=== PATIENT | female | born 1985 | race Caucasian/White ===

== ENCOUNTER → 2020-01-23 14:01 | Outpatient (CLI) | payer OTHER, SELFPAY ==
[2020-01-23 14:13] LABS: Add Manual Diff / Slide Review NO; Basophils Absolute Auto 0 /uL (0-100); Basophils Percent Auto 0.6 % (0-2); Eosinophils Absolute Auto 100 /uL (0-450); Eosinophils Percent Auto 1.7 % (2-4); Hemoglobin 12.2 g/dL (12.0-16.0); Lymphocytes Absolute Auto 1800 /uL (1100-4500); Mean Corpuscular Volume 82.3 fL (80-100); Monocytes Absolute Auto 500 /uL (0-900); Monocytes Percent Auto 6.9 % (3-14); Neutrophils Absolute Auto 5000 /uL (1500-7000); Neutrophils Percent Auto 66.8 % (50-75); Platelet Count 314 X10^3/uL (150-400); Red Blood Cell Count 4.37 X10^6/uL (4.0-5.2); Red Cell Distribution Width 13.5 % (11.6-14.8); White Blood Cell Count 7.4 X10^3/uL (4.5-11.0)
[2020-01-23 14:28] LABS: C-Reactive Protein Quant 1.6 mg/dL (<1.0); Uric Acid 5.4 mg/dL (2.5-6.2)
[2020-01-23 14:35] LABS: Erythrocyte Sedimentation Rate 45 MM/HR (0-20)
== END ==
PROVIDERS: PCP Registered Nurse Diabetes Educator; Referring Provider Registered Nurse Diabetes Educator; Visit Provider Registered Nurse Diabetes Educator
DX: M25.473 Effusion, unspecified ankle (principal)
CPT/HCPCS: 36415; 84550; 85025; 85651; 86140

== ENCOUNTER → 2020-01-24 13:53 | Outpatient (CLI) | payer OTHER, SELFPAY ==
--- NOTE | 2020-01-24 13:55 | DI.RAD.S_ITS ---
PROCEDURE: XR ANKLE RT MIN 3V INDICATIONS: 3 day hx R ankle pain/swelling, no recent trauma TECHNIQUE: 3 views of the ankle were acquired. COMPARISON: None. FINDINGS: Bones: No fractures or dislocations. Ankle mortise is normally aligned. No suspicious bony lesions. Soft tissues: No tibiotalar joint effusion. Achilles tendon appears normal. IMPRESSION: No acute osseous abnormalities. Dictated by: Emily Reyes M.D. on 01/24/2020 at 17:46 Approved by: Emily Reyes M.D. on 01/24/2020 at 17:46
== END ==
LOC: RAD 13:54
PROVIDERS: PCP Registered Nurse Diabetes Educator; Referring Provider Registered Nurse Diabetes Educator; Visit Provider Registered Nurse Diabetes Educator
DX: M25.471 Effusion, right ankle (principal); M25.571 Pain in right ankle and joints of right foot
CPT/HCPCS: 73610

== ENCOUNTER → 2020-02-01 14:22 | Outpatient (CLI) | payer OTHER, SELFPAY ==
[2020-02-01 14:38] LABS: RBC Urine None Seen (0-5/HPF)
[2020-02-01 15:09] LABS: Appearance Urine UA SL CLOUDY; Bilirubin Urine UA NEGATIVE (NEGATIVE); Color Urine UA YELLOW; Glucose Urine UA NEGATIVE (Negative); Ketones Urine UA NEGATIVE (NEGATIVE); Leukocyte Esterase Urine UA NEGATIVE (NEGATIVE); Nitrite Urine UA NEGATIVE (Negative); Occult Blood Urine UA NEGATIVE (Negative); Protein Urine UA NEGATIVE (Negative); Specific Gravity Urine UA <=1.005 (1.000-1.035); Urobilinogen Urine UA 0.2 E.U./dL (0.2)
[2020-02-01 15:21] LABS: Alanine Aminotransferase 18 IU/L (<35); Albumin 4.4 g/dL (3.5-5.0); Alkaline Phosphatase 69 U/L (38-126); Aspartate Aminotransferase 21 IU/L (14-36); BUN Creatinine Ratio 19.2 (6-22); Bilirubin Total 0.4 mg/dL (0.2-1.3); Blood Urea Nitrogen 14 mg/dL (7-17); Calcium 9.5 mg/dL (8.4-10.2); Carbon Dioxide 26 mmol/L (22-32); Chloride 103 mmol/L (98-107); Estimated Glomerular Filt Rate > 60.0 mL/min (>60); Globulin 4.2 g/dL (1.7-4.1); Glucose 88 mg/dL (70-100); HEMOLYSIS < 15 (0-50); Potassium 3.9 mmol/L (3.4-5.1); Sodium 136 mmol/L (137-145); Total Protein 8.6 g/dL (6.3-8.2)
[2020-02-01 15:22] LABS: pH Urine UA 6.5 (4.5-8.0)
[2020-02-01 15:23] LABS: Amorphous Sediment Urine 1+; Bacteria Urine Moderate (10-30); Culture Indicated Urine Specimen Cultured; Renal Epithelial Cells Urine 0-1/HPF (0-1/HPF); Squamous Epithelial Cell Urine 1-5 /HPF (0-5/HPF); WBC Urine 1-5/HPF (0-5/HPF)
[2020-02-01 15:24] LABS: Rheumatoid Factor 30.3 IU/mL (<12.0)
[2020-02-01 18:19] LABS: TSH w/ Reflex to FT4 0.94 uIU/mL (0.47-4.68)
[2020-02-02 04:36] LABS: Hepatitis B Core AB w/Reflex Negative (Negative)
[2020-02-02 14:40] LABS: ANA Screen, IFA Negative (.)
[2020-02-03 14:38] LABS: CCP Antibodies IgG/IgA 6 units (0-19)
[2020-02-04 14:08] LABS: Parvovirus B19 IgG 6.4 index (0.0-0.8); Parvovirus B19 IgM 0.1 index (0.0-0.8)
[2020-02-04 16:34] LABS: Hepatitis B Surface Antigen NEGATIVE s/c (NEGATIVE)
[2020-02-04 17:08] LABS: Hep C Virus Ab w/Reflex Quant NEGATIVE s/c (NEGATIVE)
== END ==
PROVIDERS: PCP Registered Nurse Diabetes Educator; Referring Provider Registered Nurse Diabetes Educator; Visit Provider Registered Nurse Diabetes Educator
DX: M13.0 Polyarthritis, unspecified (principal)
CPT/HCPCS: 36415; 80053; 81001; 84443; 86038; 86200; 86430; 86704; 86747; 86803; 87086; 87340

== ENCOUNTER → 2020-08-19 14:38 | Outpatient (CLI) | payer OTHER, SELFPAY ==
[2020-08-19 14:57] LABS: Add Manual Diff / Slide Review NO; Basophils Absolute Auto 100 /uL (0-100); Basophils Percent Auto 0.6 % (0-2); Eosinophils Absolute Auto 100 /uL (0-450); Eosinophils Percent Auto 0.8 % (2-4); Hematocrit 39.5 % (36-46); Hemoglobin 13.2 g/dL (12.0-16.0); Lymphocytes Absolute Auto 1600 /uL (1100-4500); Lymphocytes Percent Auto 18.4 % (25-40); Mean Corpuscular HGB Conc 33.3 % (30-36); Mean Corpuscular Hemoglobin 28.9 PG (26-34); Mean Corpuscular Volume 86.6 fL (80-100); Monocytes Absolute Auto 600 /uL (0-900); Monocytes Percent Auto 6.5 % (3-14); Neutrophils Absolute Auto 6600 /uL (1500-7000); Neutrophils Percent Auto 73.7 % (50-75); Platelet Count 301 X10^3/uL (150-400); Red Blood Cell Count 4.56 X10^6/uL (4.0-5.2); Red Cell Distribution Width 12.9 % (11.6-14.8); White Blood Cell Count 8.9 X10^3/uL (4.5-11.0)
[2020-08-19 14:58] LABS: Appearance Urine UA CLEAR; Bilirubin Urine UA NEGATIVE (NEGATIVE); Color Urine UA YELLOW; Glucose Urine UA NEGATIVE (Negative); Ketones Urine UA 1+ (NEGATIVE); Leukocyte Esterase Urine UA NEGATIVE (NEGATIVE); Nitrite Urine UA NEGATIVE (Negative); Occult Blood Urine UA NEGATIVE (Negative); Protein Urine UA TRACE (Negative); Specific Gravity Urine UA >=1.030 (1.000-1.035); Urobilinogen Urine UA 0.2 E.U./dL (0.2)
[2020-08-19 16:08] LABS: Hepatitis B Surface Antigen NEGATIVE s/c (NEGATIVE); Rubella Antibody IgG 42.4 IU/mL (>15)
[2020-08-19 16:26] LABS: HIV 1 & 2 Ab/Ag 4th Gen Combo NEGATIVE (NEGATIVE); Hep C Virus Ab w/Reflex Quant NEGATIVE s/c (NEGATIVE)
[2020-08-20 07:36] LABS: RPR Screen Non Reactive (Non Reactive)
[2020-08-20 10:36] LABS: Varicella IgG Antibody 328 index (Immune >165)
== END ==
PROVIDERS: PCP Registered Nurse Diabetes Educator; Referring Provider Obstetrics & Gynecology; Visit Provider Obstetrics & Gynecology
DX: Z34.81 Encounter for supervision of other normal pregnancy, first trimester (principal)
CPT/HCPCS: 36415; 80055; 81003; 86787; 86803; 86850; 86900; 86901; 87086; 87389

== ENCOUNTER → 2020-11-07 15:43 | Outpatient (CLI) | payer OTHER, SELFPAY ==
--- NOTE | 2020-11-07 15:44 | DI.US.S_ITS ---
PROCEDURE: US OB >= 14 WEEKS FETUS INDICATIONS: Anatomy Scan OUTSIDE/PRIOR DATING DATA: Last menstrual period (LMP): 06/20/2020. LMP-based estimated date of delivery (RE): 03/27/2021. First dating scan (date and location): 08/18/2020. Estimated date of delivery (RE) from first dating scan: 03/27/2021. TECHNIQUE: Real-time scanning was performed of the fetus, with image documentation and biometric measurements. Endovaginal scanning: Not performed. COMPARISON: [facility], US, OB >= 14 WEEKS FETUS, 10/13/2020, 16:56. FINDINGS: General: A single living intrauterine gestation is present. Presentation: Breech. Placenta: Placental position is anterior, without previa. Amniotic fluid index: 9.5 cm, normal range is 5-24 cm. heart rate: 137 beats per minute. Maternal cervical canal: 6.7 cm long. Normal lower limit is 2.5 cm. biometrics: Biparietal diameter: 14.4 cm, 19 weeks 3 days Head circumference: 17.9 cm, 20 weeks 3 days Abdominal circumference: 14.8 cm, 20 weeks 0 days Femur length: 3.5 cm, 21 weeks 1 day Estimated gestational age from initial scan: 20 weeks 0 days Composite gestational age from present scan: 20 weeks 2 days Estimated weight and percentile: 357 g, 73rd percentile Measurement variability for biometric dating: +/- 7 days from 14 weeks to 15 weeks 6 days gestation, +/- 10 days from 16 weeks to 21 weeks 6 days gestation, +/- 2 weeks from 22 weeks to 27 weeks 6 days gestation, +/- 3 weeks for 28 weeks gestation or later. weight reference: 4500 g or EFW >90/95% is considered macrosomia or large for gestational age. EFW <10% is small for gestational age. EFW 5% or less is considered intra-uterine growth restriction. Anatomic survey: Neuro: Ventricles are non-dilated at less than 10 mm. Cisterna magna is normal at 3-11 mm. Cerebellum is normal in size and morphology. Nuchal skin fold: Normal at less than 6 mm between 14-21 weeks gestational age. Face: Nose and lips, facial profile are normal. Spine: No evidence for spina bifida. Heart: 4-chambered heart is present, with normal ventricular outflow tracts. Diaphragm: Diaphragm is intact. Stomach: Left-sided stomach is present. Kidneys: No hydronephrosis. Normal is less than 5 mm in 2nd trimester, less than 7 mm in 3rd trimester. Cord: 3-vessel cord has orthotopic insertion. Bladder: Normal in size. Extremities: All 4 extremities identified. IMPRESSION: 1. Lua living intrauterine at 20 weeks 2 days based on today's ultrasound. This is concordant with the prior ultrasound. There is expected interval growth. 2. Normal placenta and amniotic fluid. 3. Normal and complete anatomic survey. Dictated by: Garfield Kim M.D. on 11/07/2020 at 18:30 Approved by: Garfield Kim M.D. on 11/07/2020 at 18:35
== END ==
LOC: US 15:44
PROVIDERS: PCP Registered Nurse Diabetes Educator; Referring Provider Obstetrics & Gynecology; Visit Provider Obstetrics & Gynecology
DX: Z34.82 Encounter for supervision of other normal pregnancy, second trimester (principal); Z3A.20 20 weeks gestation of pregnancy
CPT/HCPCS: 76811

== ENCOUNTER → 2020-12-16 14:43 | Outpatient (CLI) | payer OTHER, SELFPAY ==
[2020-12-16 16:03] LABS: Hematocrit 34.9 % (36-46); Hemoglobin 12.1 g/dL (12.0-16.0)
[2020-12-16 17:26] LABS: GTT (PREG) 1 Hour PP 50gm Dose 102 mg/dL (76-139)
== END ==
PROVIDERS: PCP Registered Nurse Diabetes Educator; Referring Provider Obstetrics & Gynecology; Visit Provider Obstetrics & Gynecology
DX: Z34.82 Encounter for supervision of other normal pregnancy, second trimester (principal); Z3A.26 26 weeks gestation of pregnancy
CPT/HCPCS: 36415; 82950; 85014; 85018

== ENCOUNTER 2021-01-26 16:48 | Observation (INO) | payer BC, SELFPAY ==
--- NOTE | 2021-01-26 19:34 | PM.OBTRLD ---
Visit Information Visit Information Date of evaluation: 01/26/21 Primary OB Provider: Natalia Beatty On-call OB Provider: Mirian Elizabeth Reason for Evaluation: Yes non-stress test Comments/Additional reasons for admission: 35YO at 31wks 3days referred from clinic for NST after arrhythmia auscultated by doppler in clinic. Lots of FM. No cramping or VB. Routine care with . Vital Signs Vital Signs: BP 116/65mmHg, Hr 72bpm, RR 16/min, ,T 97.8F temporal [facility] Medical History (Updated 01/26/21 @ 16:51 by Natalia Beatty MD) Acne (~1999) Ankle swelling Chicken pox Depression Migraine Polyarthritis (spontaneous vaginal delivery) (~11/02/17) Surgical History (Updated 08/11/20 @ 13:21 by Aishwarya Fabian RN) No history of previous surgery (03/11/16) [place] teeth extracted (~05/24/19) Family History (Updated 08/24/20 @ 23:18 by Shayy Turner) Grandfather Heart problem Brain damage Depression Congestive heart failure Grandmother Heart problem Depression Diabetes mellitus Pacemaker History of open heart surgery Grandfather Depression Grandmother Depression Breast cancer Cancer Mother Hypertension Depression Hyperlipidemia Mental health problem Father Hypertension Arthritis Hyperlipidemia Family/Other Depression Fibromyalgia Family/Other Twins live born in hospital Social History marital status: number of children: 1 household members: spouse and children lives independently: Yes pets and animals: Yes (X 2 dogs, X 1 cat) education level: college occupational status: employed ([employer] ) current occupational exposures/hazards: Yes special natalia needs: No Smoking Status: Never smoker second hand exposure: No alcohol intake: former (pre- : rare use) substance use type: does not use Exam Vital Signs (past 8 hours): see above Evaluation Evaluation Baseline heart rate: 130 Variability: Moderate (11-25) monitor accelerations: Present Monitor Decelerations: Absent Contraction Frequency (minutes): 0 Category of Tracing: Reactive Comments: CE deferred Diagnosis, Plan/Disposition Final Diagnosis (1) arrhythmia affecting , antepartum: Status: Acute Plan/Disposition Plan: Reassurance given on reactive NST. Discharge to home. [facility] referral sent by to [facility] jono Schmid to follow-up with them as soon as schedule allows. OB Disposition: home
== END 2021-01-26 19:46 | disposition home or self-care (01) ==
PROVIDERS: Admitting Provider Obstetrics & Gynecology; PCP Registered Nurse Diabetes Educator; Referring Provider Obstetrics & Gynecology; Visit Provider Obstetrics & Gynecology
DX: O36.8330 Maternal care for abnormalities of the fetal heart rate or rhythm, third trimester, not applicable or unspecified (principal); Z3A.31 31 weeks gestation of pregnancy
CPT/HCPCS: 59025; G0378; G0379

== ENCOUNTER → 2021-03-03 16:41 | Outpatient (CLI) | payer BC, SELFPAY ==
[2021-03-04 12:45] LABS: Strep Grp B PCR NEG for Grp B Strep
== END ==
PROVIDERS: PCP Registered Nurse Diabetes Educator; Visit Provider Obstetrics & Gynecology
DX: Z34.83 Encounter for supervision of other normal pregnancy, third trimester (principal); Z3A.36 36 weeks gestation of pregnancy
CPT/HCPCS: 87653

== ENCOUNTER 2021-03-22 18:26 | Outpatient (CLI) | payer BC, SELFPAY | END 2021-03-22 20:05 | disposition home or self-care (01) | LOC: LABOR 18:47 → OB 03-24 04:49 | PROVIDERS: PCP Registered Nurse Diabetes Educator; Referring Provider Obstetrics & Gynecology; Visit Provider Obstetrics & Gynecology | DX: Z34.83 Encounter for supervision of other normal pregnancy, third trimester (principal); Z3A.39 39 weeks gestation of pregnancy | CPT/HCPCS: 59025; G0378; G0379 ==

== ENCOUNTER 2021-03-25 11:00 | Inpatient (IN) | payer BC, SELFPAY ==
[2021-03-25 12:25] LABS: Add Manual Diff / Slide Review NO; Basophils Absolute Auto 0 /uL (0-100); Basophils Percent Auto 0.4 % (0-2); Eosinophils Absolute Auto 0 /uL (0-450); Eosinophils Percent Auto 0.4 % (2-4); Hematocrit 38.2 % (36-46); Hemoglobin 12.6 g/dL (12.0-16.0); Lymphocytes Absolute Auto 1300 /uL (1100-4500); Mean Corpuscular HGB Conc 32.9 % (30-36); Mean Corpuscular Hemoglobin 28.5 PG (26-34); Mean Corpuscular Volume 86.5 fL (80-100); Monocytes Absolute Auto 600 /uL (0-900); Monocytes Percent Auto 6.6 % (3-14); Neutrophils Absolute Auto 6600 /uL (1500-7000); Neutrophils Percent Auto 77.6 % (50-75); Platelet Count 191 X10^3/uL (150-400); Red Blood Cell Count 4.41 X10^6/uL (4.0-5.2); Red Cell Distribution Width 14.4 % (11.6-14.8); White Blood Cell Count 8.5 X10^3/uL (4.5-11.0)
[2021-03-25 12:35] VITALS: BP 111/69
[2021-03-25] MEDS: LACTATED RINGERS 1,000 ML 100 ML IV ×2 (12:37→22:07)
[2021-03-25] MEDS: OXYTOCIN PREMIX 30 UNIT/500 ML PLAST..BAG IV (12:38)
[2021-03-25 13:24] LABS: COVID19 - ADMIT (NP swab/PCR) Negative (Negative)
--- NOTE | 2021-03-25 17:45 | PM.OBPNLAB ---
Date/Time Date Patient Seen: 03/25/21 Time Patient Seen: 17:46 Pain Control Pain control: tolerating well Comments: Per request from , and with patient consent, patient was examined at 1549. CE 2.5/40%/-3, Hays balloon placed manually and inflated w/ 60mL sterile saline. Pitocin was @ 14mu/min at that time. She continued to contract regularly, though more uncomfortably and Hays balloon came out while on toilet at 1724. Pt is more comfortable but requesting epidural in anticipation if increasing intensity after AROM. Consents to AROM prior to epidural placement. Pelvic Exam Dilation (cm): 5 Effacement (%): 60 station: -2 Amniotic membrane status: Ruptured (AROM, small, clear) Contractions Monitor mode: External Pitocin rate (mU/min): 16 Contraction frequency (min): 3 Contraction duration (min): 1 Contraction pattern: Regular Contraction phase: Resting Contraction intensity: Mild Status status: Category l Heart Rate Baseline: 130 Monitor Accelerations: Present Monitor Decelerations: Absent Monitor Variability: Moderate Assessment and Plan Assessment: induction ongoing Plan: continuous present management Comments: Epidural JASKARAN and continue pitocin titration, per protocol.
--- NOTE | 2021-03-25 19:43 | PM.OBHP.1 ---
OB HPI Date/Time Date of admission: 03/25/21 Date Patient Seen: 03/25/21 Time Patient Seen: 19:43 History of Present Condition Chief complaint: Induction : 2 Para: 1 Estimated Date of Delivery: 03/27/21 Estimated Gestational Age (weeks): 39+5 Narrative: Ruby Dove is a 35 year old female 2 para 1 at 39-,5/7 weeks gestation who presents for induction of labor with Pitocin. She had a Hays catheter placed. She had rupture of membranes. She has an epidural in place. Indications Indication for induction OB: other (History of LGA baby, forceps, fourth degree laceration) History of Present care: good care, initiated at week # (8), number of visits (11) and pounds weight gain (30) Dating criteria: LMP confirmed by 1st trimester US Ultrasounds: normal 1st trimester US and normal mid trimester US Obstetrical complications: none Medical complications: none Preadmission Labs Blood type: A (+) positive -: Antibody screen: negative, GBS status: negative, HBsAG: negative, HIV: negative and RPR/VDLR: negative -: Chlamydia screen: not detected and Gonorrhea screen: not detected -: Rubella: immune and Varicella: immune HCT: 38.2 HCAB: negative PAP: Normal Urine: negative 1 hr GTT: 102 Prior (ies) History: Forceps assisted vaginal delivery of LGA baby. 4th degree laceration Evaluation Evaluation Baseline heart rate: 125 Variability: Moderate (11-25) monitor accelerations: Present Monitor Decelerations: Absent Contraction Frequency (minutes): 3 Uterine Contraction Intensity: Strong/Firm Status: Category l Cervical dilation (cm): 5 Cervical effacement (%): 50 station: -[facility] Medical History (Updated 03/23/21 @ 07:16 by Natalia Beatty MD) Acne (~1999) Ankle swelling Chicken pox Depression Migraine Polyarthritis (spontaneous vaginal delivery) (~11/02/17) Surgical History (Updated 08/11/20 @ 13:21 by Aishwarya Fabian RN) No history of previous surgery (03/11/16) [place] teeth extracted (~05/24/19) Family History (Updated 08/24/20 @ 23:18 by Shayy Turner) Grandfather Heart problem Brain damage Depression Congestive heart failure Grandmother Heart problem Depression Diabetes mellitus Pacemaker History of open heart surgery Grandfather Depression Grandmother Depression Breast cancer Cancer Mother Hypertension Depression Hyperlipidemia Mental health problem Father Hypertension Arthritis Hyperlipidemia Family/Other Depression Fibromyalgia Family/Other Twins live born in hospital Social History marital status: number of children: 1 household members: spouse and children lives independently: Yes pets and animals: Yes (X 2 dogs, X 1 cat) education level: college occupational status: employed ([employer] ) current occupational exposures/hazards: Yes special natalia needs: No Smoking Status: Never smoker second hand exposure: No alcohol intake: former (pre- : rare use) substance use type: does not use Meds Home Medications and Allergies Home Medications Medication Instructions Recorded Confirmed Type prenat.vits,rossana,[id number] 1 tab PO DAILY 08/11/20 03/25/21 History Allergies Allergy/AdvReac Type Severity Reaction Status Date / Time No Known Drug Allergies Allergy Verified 03/19/21 15:17 Exam Vital Signs (past 8 hours): - 03/25/21 12:35 Blood Pressure 111/69 Narrative Exam Narrative: Generally: Patient comfortable with epidural Lungs: Clear to auscultation bilaterally Cardiovascular: Regular rate and rhythm Fundal height: 40 cm Estimated weight: 8 lb Extremities: 1+ edema, 1+ DTRs Objective Labs Result Diagrams: 03/25/21 12:00 Labs: Laboratory Results - last 24 hr 03/25/21 03/25/21 03/25/21 12:00 12:00 12:00 WBC 8.5 RBC 4.41 Hgb 12.6 Hct 38.2 MCV 86.5 MCH 28.5 MCHC 32.9 RDW 14.4 Plt Count 191 Neut % (Auto) 77.6 H Lymph % (Auto) 15.0 L Ramsey % (Auto) 6.6 Eos % (Auto) 0.4 L Baso % (Auto) 0.4 Neut # (Auto) 6600 Lymph # (Auto) 1300 Ramsey # (Auto) 600 Eos # (Auto) 0 Baso # (Auto) 0 SARS-CoV-2 (PCR) Negative Blood Type A Positive Antibody Screen Negative Assessment and Plan Assessment and Plan Assessment and Plan narrative: Assessment: 35-year-old 2 para 1 at 39-,5/7 weeks gestation for induction of labor due to history of LGA baby requiring forcep fourth degree laceration Epidural in place and patient comfortable Status post rupture of membranes Plan: Expectant management to Time Spent with Patient Total time spent with greater than 50% in coordination of care (as documented) at patient's floor/unit and/or counseling patient:: 15-24 minutes
--- NOTE | 2021-03-25 23:31 | PM.AN.REGBLK ---
Regional Block Pre-procedure Procedure: Continuous Lumbar Epidural for L&D Attending OB provider: Natalia Beatty PMH/ROS narrative: term labor, no complications. ASA Class: II Labs: Hct 38.2 % (36-46) 03/25/21 12:00 Plt Count 191 X10^3/uL (150-400) 03/25/21 12:00 Medications: Current Medications Generic Name Dose Route Start Last Admin Trade Name Freq PRN Reason Stop Dose Admin Calcium Carbonate 1,000 mg 03/25/21 11:13 Calcium Carbonate 500 Mg Tab PO Q2HR PRN Dyspepsia Carboprost Tromethamine 250 mcg 03/25/21 11:13 Carboprost 250 Mcg/Ml Ampul IM Q90M PRN Bleeding Diphenhydramine HCl 25 mg 03/25/21 23:27 Diphenhydramine 50 Mg/Ml Vial IV Q10M PRN Pruritis Fentanyl 50 mcg 03/25/21 11:13 Fentanyl 100 Mcg/2 Ml Inj IV Q1H PRN Pain, Moderate (4-6) Tranexamic Acid 1,000 mg/ 100 mls @ 200 mls/hr 03/25/21 11:13 Sodium Chloride IV NOW PRN Bleeding Lactated Ringer's 1,000 mls @ 100 mls/hr 03/25/21 11:15 03/25/21 22:07 Lactated Ringers IV 100 mls/hr CONT KALEB Administration Oxytocin/Lactated Ringer's 30 unit in 500 mls @ 200 mls/hr 03/25/21 11:13 Oxytocin Premix IV CONT PRN Bleeding Protocol Oxytocin/Lactated Ringer's 30 unit in 500 mls @ 3 mls/hr 03/25/21 11:15 03/25/21 12:38 Oxytocin Premix IV 2 milliunit/min TITRATE KALEB 2 mls/hr Administration Protocol 3 MILLIUNIT/MIN FENT 2MCG/ML BUPIV 0.125% EPI 200 mcg in 100 mls @ 6 mls/hr 03/25/21 23:30 Fentanyl/Bupiv/Ns 2mcg/Ml - 0.125% EPIDURAL CONT KALEB Methylergonovine Maleate 0.2 mg 03/25/21 11:13 Methylergonovine 0.2 Mg/Ml Vial IM NOW PRN Bleeding Methylergonovine Maleate 0.2 mg 03/25/21 11:13 Methylergonovine 0.2 Mg Tablet PO Q6HR PRN Heavy Bleeding Metoclopramide HCl 10 mg 03/25/21 11:13 Metoclopramide 10 Mg/2 Ml Inj IV NOW PRN Nausea And Vomiting Misoprostol 1,000 mcg 03/25/21 11:13 Misoprostol 200 Mcg Tablet VT NOW PRN Bleeding Misoprostol 800 mcg 03/25/21 11:13 Misoprostol 200 Mcg Tablet VT NOW PRN Bleeding Misoprostol 400 mcg 03/25/21 11:13 Misoprostol 200 Mcg Tablet SL NOW PRN Bleeding Nalbuphine HCl 2.5 mg 03/25/21 23:27 Nalbuphine 20 Mg/Ml Ampul IV Q10M PRN Pruritis Naloxone HCl 0.2 mg 03/25/21 11:13 Naloxone 0.4 Mg/Ml Vial IV Q2MIN PRN Opiate Reversal Ondansetron HCl 4 mg 03/25/21 11:13 Ondansetron 4 Mg/2 Ml Inj IV Q4HR PRN Nausea And Vomiting Oxytocin 10 unit 03/25/21 11:13 Oxytocin 10 Unit/Ml Vial IM NOW PRN Bleeding Allergies: Allergies Allergy/AdvReac Type Severity Reaction Status Date / Time No Known Drug Allergies Allergy Verified 03/19/21 15:17 Procedure Insertion date: 03/25/21 Insertion time: 18:00 Prep/Local: betadine x3 and 1% lidocaine Interspace: L3-4 Needle: 18 gauge ContentRealtime (CSE: 27g Pencan through Hustead, clear CSF, 1mL 0.25% bupiv) Loss of resistance with: saline MICHELLE at (cm): 5 Catheter placed at SKIN (cm): 11 Catheter in SPACE (cm): 6 Initial Medications TEST DOSE time: 18:01 TEST DOSE: 1.5% lidocaine with epinephrine 1:200k (mL): 3 BOLUS DOSE time: 18:10 BOLUS DOSE (mL): 3 BOLUS DOSE med: other (infusate) Infusion INFUSION: 0.125% bupivacaine and with fentanyl 2 mcg/mL Initial rate (mL/hr): 6 Subsequent interventions: rate 6 to 9 at 1900 23:30 bolus 5mL 2% lidocaine 23:40 bolus 5mL 2% lidocaine + 50mcg fentanyl, complete Post-procedure Anesthesia time START: 17:51 Anesthesia time END: 00:45 Post-procedure Anesthesia Assessment: Yes CV function: HR/BP stable, Yes Resp function: RR/sat/airway adequate, Yes Mental status appropriate and No Anesthesia complications
[2021-03-25] MEDS: FENT 2MCG/ML BUPIV 0.125% EPI 200 MCG/100 ML PLAST..BAG 9 MCG EPIDURAL (23:40)
--- NOTE | 2021-03-26 00:57 | PM.OBPRVD ---
Events: Labor Induction Labor & Delivery Delivery date: 03/26/21 Cervical ripening method: per Hays bulb protocol Delivery augmentation: rupture of membranes Delivery monitor: external FHT and external uterine Route of delivery: Episiotomy description: None L&D Laceration Description: Perineal - 1st Degree Delivery repair: chromic Estimated blood loss (mL): 250 Anesthesia Type: Epidural Complications: None [place] Baby 1: gender: Female Presentation: vertex Position: Left Occiput Posterior Placenta delivery description: Spontaneous Cord Vessel Description: 3 Vessels and Clamped/Cut score (1 min): 8 score (5 min): 9 Narrative: Patient complete and pushed for 1 hour and 5 minutes. At 12:42 a.m., a live female infant delivered spontaneously in the left occiput posterior presentation, over an intact perineum. The remainder of the body delivered without difficulty and infant was placed on mom's abdomen. After the cord stopped pulsing, the cord was double clamped and cut. Cord bloods were obtained. Pitocin was given in the IV fluids. The placenta delivered intact with a three-vessel cord at 12:47 a.m. Fundus was massaged to firm. A first-degree perineal tear was repaired with 3-0 chromic in the usual fashion. Hemostasis was achieved. Apgars 8 at 1 minute and 9 at 5 minutes. Epidural analgesia. . Mom and infant stable to recovery. Plan for aftercare: Routine care
[2021-03-26] MEDS: IBUPROFEN 600 MG TABLET PO ×3 (01:36→14:21)
[2021-03-26] MEDS: ACETAMINOPHEN 325 MG TABLET 650 MG PO ×3 (01:36→14:21)
[2021-03-26] MEDS: LANOLIN OINT 7 GM 1 APPLIC TOP (08:01)
[2021-03-26] MEDS: DERMOPLAST SPRAY 20% 60 ML 1 SPRAY TOP (08:04)
[2021-03-26] MEDS: DOCUSATE 100 MG CAPSULE PO (09:22)
[2021-03-26] MEDS: PRENATAL VIT,CALC/IRON/FOLIC 1 TABLET 1 TAB PO (09:22)
--- NOTE | 2021-03-26 19:09 | PM.OBDS.1 ---
Discharge Providers Provider Date of admission: 03/25/21 11:00 Discharge Date: 03/26/21 Primary care physician: DRISS Tellez Consults: 03/27/21 00:55 Consult to Outreach Nurse Routine Comment: Discharge provider: Natalia Beatty MD Summary Hospital Course Date Patient Seen: 03/26/21 Time Patient Seen: 19:09 Diagnoses: Forty weeks gestation History of large for gestational age requiring forceps and resulting in a fourth degree laceration Pitocin and mcneil of labor Artificial rupture of member Spontaneous vaginal delivery First-degree perineal laceration repair Hospital Course: Patient is a 35-year-old 2 para 2 who vented in the afternoon of March 25, 2021 for Pitocin induction of labor. She had a Hays balloon placed. She progressed and had an artificial rupture of membranes. An epidural was placed for pain management. She progressed to complete dilation and had a spontaneous vaginal delivery without complication. Her course was unremarkable. She is discharged home on post day # 1. Peripartum Data Infant Delivery Method: Natural Vaginal Laceration Description: Perineal - 1st Degree Episiotomy description: None Procedures: Post an induction of labor Artificial rupture of membranes Spontaneous vaginal delivery Epidural analgesia complications: none 1: Gender: Female Disposition of : home Status at Discharge Cognitive/behavioral status at discharge: oriented Functional status at discharge: independent ambulation Overall status at discharge: patient is progressing back to baseline Time Spent with Patient Time attestation: Total time spent providing and/or coordinating discharge services: Time spent: Less than 30 minutes Objective Labs Result Diagrams: 03/25/21 12:00 Exam Narrative Exam Narrative: Generally: Patient is sitting up in bed, no acute distress Fundus: Firm at U -1 Extremities: Trace edema, negative Homans Discharge Plan Discharge Plan Patient Disposition: Home Discharge orders & Medications Prescriptions: Continued prenat.vits,rossana,[id number] Tablet 1 tab PO DAILY RF: 0 Follow up/Referrals: Natalia Beatty MD [Physician] - 6 Weeks Diet/Activity/Treatments Diet: Regular Activity: Nothing in the vagina until 6 week exam Skin/Wound/Dressing Care Report to your healthcare provider any signs of infection, such as:: chills, fever, increased pain and unusual drainage Visit Report/Discharge Packet Instructions: DI for Labor and Delivery, Vaginal Discharge Data Primary Care Provider: Earl Farrell
[2021-03-26 20:08] VITALS: BP 119/65; PULSE 81; RESP 17; TEMP 36
== END 2021-03-26 20:45 | disposition home or self-care (01) | DRG 807 ==
PROVIDERS: Admitting Provider Obstetrics & Gynecology; PCP Registered Nurse Diabetes Educator; Referring Provider Obstetrics & Gynecology; Visit Provider Obstetrics & Gynecology
DX: O70.0 First degree perineal laceration during delivery (principal); Z37.0 Single live birth; Z3A.39 39 weeks gestation of pregnancy; Z20.822 Contact with and (suspected) exposure to COVID-19
CPT/HCPCS: 01967; 36415; 59050; 59400; 85025; 86850; 86900; 86901; 87635; C9803; G0379; J2590

== ENCOUNTER → 2022-04-29 09:31 | Outpatient (CLI) | payer BC, SELFPAY ==
[2022-04-29 10:17] LABS: Hematocrit 40.8 % (36-46); Mean Corpuscular HGB Conc 34.4 % (30-36); Mean Corpuscular Hemoglobin 29.1 PG (26-34); Mean Corpuscular Volume 84.7 fL (80-100); Platelet Count 296 X10^3/uL (150-400); Red Blood Cell Count 4.81 X10^6/uL (4.0-5.2); Red Cell Distribution Width 13.6 % (11.6-14.8); White Blood Cell Count 5.7 X10^3/uL (4.5-11.0)
[2022-04-29 11:17] LABS: Free T4, Direct Thyroxine 0.76 ng/dL (0.78-2.19)
[2022-04-29 11:31] LABS: Thyroid Stimulating Hormone 8.95 uIU/mL (0.47-4.68)
== END ==
PROVIDERS: PCP Registered Nurse Diabetes Educator; Referring Provider Obstetrics & Gynecology; Visit Provider Obstetrics & Gynecology
DX: R23.2 Flushing (principal)
CPT/HCPCS: 36415; 84439; 84443; 85027

== ENCOUNTER → 2022-07-22 10:00 | Outpatient (CLI) | payer BC, SELFPAY ==
[2022-07-22 10:28] LABS: Hematocrit 41.9 % (36-46); Hemoglobin 13.9 g/dL (12.0-16.0); Mean Corpuscular HGB Conc 33.2 % (30-36); Mean Corpuscular Hemoglobin 28.6 PG (26-34); Platelet Count 303 X10^3/uL (150-400); Red Blood Cell Count 4.87 X10^6/uL (4.0-5.2); Red Cell Distribution Width 13.2 % (11.6-14.8); White Blood Cell Count 5.3 X10^3/uL (4.5-11.0)
[2022-07-22 10:51] LABS: Alanine Aminotransferase 14 IU/L (<35); Albumin 4.4 g/dL (3.5-5.0); Albumin Globulin Ratio 1.3 (1.0-2.8); Alkaline Phosphatase 60 U/L (38-126); Aspartate Aminotransferase 21 IU/L (14-36); BUN Creatinine Ratio 22.6 (6-22); Bilirubin Total 0.4 mg/dL (0.2-1.3); Blood Urea Nitrogen 14 mg/dL (7-17); Calcium 9.3 mg/dL (8.4-10.2); Carbon Dioxide 29 mmol/L (22-32); Chloride 100 mmol/L (98-107); Cholesterol 235 mg/dL (140-199); Estimated Glomerular Filt Rate > 60 mL/min (>60); Globulin 3.3 g/dL (1.7-4.1); Glucose 86 mg/dL (70-100); HDL Cholesterol 55 mg/dL (40-60); HEMOLYSIS < 15 (0-50); LDL Cholesterol Calculated 160 mg/dL (<100); Potassium 4.3 mmol/L (3.4-5.1); Sodium 138 mmol/L (137-145); Total Protein 7.7 g/dL (6.3-8.2); Triglycerides 100 mg/dL (35-150)
[2022-07-22 11:14] LABS: TSH w/ Reflex to FT4 0.22 uIU/mL (0.47-4.68)
[2022-07-22 11:40] LABS: Free T4, Direct Thyroxine 1.18 ng/dL (0.78-2.19)
== END ==
PROVIDERS: PCP Registered Nurse Diabetes Educator; Referring Provider Registered Nurse Diabetes Educator; Visit Provider Registered Nurse Diabetes Educator
DX: E03.9 Hypothyroidism, unspecified (principal)
CPT/HCPCS: 36415; 80053; 80061; 84439; 84443; 85027

== ENCOUNTER → 2023-01-11 13:53 | Outpatient (CLI) | payer BC, SELFPAY ==
[2023-01-11 18:13] LABS: TSH w/ Reflex to FT4 4.41 uIU/mL (0.47-4.68)
[2023-01-12 15:57] LABS: Thyroid Peroxidase Antibodies 146 IU/mL (0-34)
== END ==
PROVIDERS: PCP Registered Nurse Diabetes Educator; Referring Provider Registered Nurse Diabetes Educator; Visit Provider Registered Nurse Diabetes Educator
DX: E03.9 Hypothyroidism, unspecified (principal); O90.5 Postpartum thyroiditis
CPT/HCPCS: 36415; 84443; 86376

== ENCOUNTER → 2023-04-21 08:56 | Outpatient (CLI) | payer OTHER, SELFPAY ==
[2023-04-21 11:03] LABS: TSH w/ Reflex to FT4 5.75 uIU/mL (0.47-4.68)
[2023-04-21 12:05] LABS: Free T4, Direct Thyroxine 0.94 ng/dL (0.78-2.19)
== END ==
PROVIDERS: PCP Registered Nurse Diabetes Educator; Referring Provider Registered Nurse Diabetes Educator; Visit Provider Registered Nurse Diabetes Educator
DX: E03.9 Hypothyroidism, unspecified (principal)
CPT/HCPCS: 36415; 84439; 84443

== ENCOUNTER → 2024-03-23 13:31 | Outpatient (CLI) | payer OTHER, SELFPAY ==
[2024-03-23 17:38] LABS: TSH w/ Reflex to FT4 7.95 uIU/mL (0.47-4.68)
[2024-03-23 18:11] LABS: Free T4, Direct Thyroxine 0.69 ng/dL (0.78-2.19)
== END ==
PROVIDERS: PCP Registered Nurse Diabetes Educator; Referring Provider Registered Nurse Diabetes Educator; Visit Provider Registered Nurse Diabetes Educator
DX: E03.9 Hypothyroidism, unspecified (principal)
CPT/HCPCS: 36415; 84439; 84443

== ENCOUNTER → 2024-05-21 10:41 | Outpatient (CLI) | payer OTHER, SELFPAY ==
[2024-05-21 11:15] LABS: Hematocrit 39.7 % (36-46); Hemoglobin 13.3 g/dL (12.0-16.0); Mean Corpuscular HGB Conc 33.6 % (30-36); Mean Corpuscular Volume 86.1 fL (80-100); Platelet Count 307 X10^3/uL (150-400); Red Blood Cell Count 4.61 X10^6/uL (4.0-5.2); Red Cell Distribution Width 12.8 % (11.6-14.8); White Blood Cell Count 6.6 X10^3/uL (4.5-11.0)
[2024-05-21 11:41] LABS: Alanine Aminotransferase 16 IU/L (<35); Albumin 4.2 g/dL (3.5-5.0); Albumin Globulin Ratio 1.2 (1.0-2.8); Alkaline Phosphatase 61 U/L (38-126); Aspartate Aminotransferase 23 IU/L (14-36); BUN Creatinine Ratio 18.7 (6-22); Bilirubin Total 0.3 mg/dL (0.2-1.3); Blood Urea Nitrogen 14 mg/dL (7-17); Carbon Dioxide 24 mmol/L (22-32); Chloride 106 mmol/L (98-107); Cholesterol 209 mg/dL (140-199); Estimated Glomerular Filt Rate > 60 mL/min (>60); Globulin 3.6 g/dL (1.7-4.1); Glucose 94 mg/dL (70-100); HDL Cholesterol 49 mg/dL (40-60); HEMOLYSIS < 15 (0-50); LDL Cholesterol Calculated 138 mg/dL (<100); Potassium 4.2 mmol/L (3.4-5.1); Sodium 136 mmol/L (137-145); Total Protein 7.8 g/dL (6.3-8.2); Triglycerides 110 mg/dL (35-150)
[2024-05-21 12:10] LABS: TSH w/ Reflex to FT4 5.17 uIU/mL (0.47-4.68)
[2024-05-21 12:37] LABS: Free T4, Direct Thyroxine 0.84 ng/dL (0.78-2.19)
== END ==
PROVIDERS: PCP Registered Nurse Diabetes Educator; Referring Provider Registered Nurse Diabetes Educator; Visit Provider Registered Nurse Diabetes Educator
DX: Z00.00 Encounter for general adult medical examination without abnormal findings (principal); E78.5 Hyperlipidemia, unspecified; E03.9 Hypothyroidism, unspecified; F32.1 Major depressive disorder, single episode, moderate
CPT/HCPCS: 36415; 80053; 80061; 84439; 84443; 85027

== ENCOUNTER → 2024-08-06 11:03 | Outpatient (CLI) | payer OTHER, SELFPAY | PROVIDERS: PCP Registered Nurse Diabetes Educator; Visit Provider Registered Nurse Diabetes Educator | DX: R35.0 Frequency of micturition (principal) | CPT/HCPCS: 87086 ==

== ENCOUNTER → 2024-09-18 15:18 | Outpatient (CLI) | payer OTHER, SELFPAY | PROVIDERS: PCP Registered Nurse Diabetes Educator; Visit Provider Registered Nurse | DX: J02.9 Acute pharyngitis, unspecified (principal) | CPT/HCPCS: 87070 ==

== ENCOUNTER → 2024-11-19 09:40 | Outpatient (CLI) | payer OTHER, SELFPAY ==
[2024-11-19 11:28] LABS: TSH w/ Reflex to FT4 3.91 uIU/mL (0.47-4.68)
== END ==
PROVIDERS: PCP Registered Nurse Diabetes Educator; Referring Provider Registered Nurse Diabetes Educator; Visit Provider Registered Nurse Diabetes Educator
DX: E03.9 Hypothyroidism, unspecified (principal)
CPT/HCPCS: 36415; 84443

== ENCOUNTER → 2025-02-27 13:53 | Outpatient (CLI) | payer OTHER, SELFPAY ==
[2025-02-27 14:42] LABS: HCG Quantitative /Beta subunit < 2.39 mIU/mL
== END ==
PROVIDERS: PCP Registered Nurse Diabetes Educator; Referring Provider Registered Nurse Diabetes Educator; Visit Provider Registered Nurse Diabetes Educator
DX: Z32.01 Encounter for pregnancy test, result positive (principal)
CPT/HCPCS: 36415; 84702

== ENCOUNTER → 2025-05-16 10:07 | Outpatient (CLI) | payer OTHER, SELFPAY ==
[2025-05-16 11:11] LABS: Hematocrit 39.9 % (36-46); Hemoglobin 13.6 g/dL (12.0-16.0); Mean Corpuscular HGB Conc 34.1 % (30-36); Mean Corpuscular Hemoglobin 29.2 PG (26-34); Mean Corpuscular Volume 85.4 fL (80-100); Platelet Count 316 X10^3/uL (150-400)
[2025-05-16 11:50] LABS: Alanine Aminotransferase 17 IU/L (<35); Albumin 4.7 g/dL (3.5-5.0); Albumin Globulin Ratio 1.5 (1.0-2.8); Alkaline Phosphatase 65 U/L (38-126); Blood Urea Nitrogen 13 mg/dL (7-17); Calcium 9.6 mg/dL (8.4-10.2); Carbon Dioxide 25 mmol/L (22-32); Chloride 103 mmol/L (98-107); Cholesterol 228 mg/dL (140-199); Estimated Glomerular Filt Rate > 60 mL/min (>60); Globulin 3.1 g/dL (1.7-4.1); Glucose 80 mg/dL (70-99); HDL Cholesterol 59 mg/dL (40-60); HEMOLYSIS < 15 (0-50); Potassium 4.4 mmol/L (3.4-5.1); Sodium 139 mmol/L (137-145); Total Protein 7.8 g/dL (6.3-8.2); Triglycerides 128 mg/dL (35-150)
[2025-05-16 12:18] LABS: TSH w/ Reflex to FT4 2.35 uIU/mL (0.47-4.68)
== END ==
PROVIDERS: PCP Registered Nurse Diabetes Educator; Referring Provider Registered Nurse Diabetes Educator; Visit Provider Registered Nurse Diabetes Educator
DX: E03.9 Hypothyroidism, unspecified (principal); E78.5 Hyperlipidemia, unspecified
CPT/HCPCS: 80053; 80061; 84443; 85027